=== PATIENT | female | born 1945 | race Caucasian/White ===

== ENCOUNTER → 2016-12-10 | Outpatient (CLI) | payer MEDICARE, BC ==
--- NOTE | 2016-12-10 15:03 | BD ---
EXAMINATION TYPE: MG DEXA axial skeleton. DATE OF EXAM: 12/10/2016 COMPARISON: DEXA bone scan February 05, 2014 CLINICAL HISTORY: Postmenopausal female with known osteopenia Height: 5 FT 1/2 IN Weight: 142 FRAX RISK QUESTIONS: Alcohol (3 or more units per day): NO Family History (Parent hip fracture): NO Glucocorticoids (More than 3mos): NO (Ex: prednisone, prednisolone, methylprednisolone, dexamethasone, and hydrocortisone). History of Fracture in Adulthood: YES Secondary Osteoporosis: 1. Type 1 Diabetes: NO 2. Hyperthyroidism: NO 3. Menopause before 45: NO 4. Malnutrition: NO 5. Chronic liver disease: NO Rheumatoid Arthritis: NO Current Tobacco Use: NO RISK FACTORS HISTORY OF: Hip Fracture (Right/Left): RT HIP When: 10/2016 MRI SAID FX NO SURG Spine Fracture: When: History of Wrist Fracture: BOTH When: RT 1994 LT 1989 Active: YES Postmenopausal woman: AGE 54 Lost more than 2 inches in height since high school: YES MEDICATIONS: Thyroid Medications: YES Which medication: SYNTHROID How Lon YEARS Additional Medications: SYNTHROID,CLONIDINE, SPIRONOLACTONE,PREVASTATIN Additional History: EXAM MEASUREMENTS: Bone mineral densitometry was performed using the [employer] System. Bone mineral density as measured about the Lumbar spine is: ----- L1-L4(G/cm2): 0.960 T Score Values are as follows: ----- L2: -1.8 ----- L3: -1.4 ----- L4: -2.1 ----- L1-L4: -1.8 Bone mineral density has: Decreased -5.6% since study of: 2013 Bone mineral density about the R hip (g/cm2): 0.878 Bone mineral density about the L hip (g/cm2): 0.774 T Score values are as follows: -----R Neck: -1.1 -----L Neck: -1.9 -----R Total: -1.5 -----L Total: -2.0 Bone mineral density has: Decreased -5.3% since study of: 2013 IMPRESSION: Osteopenia (T Score between -2.5 and -1 as noted by T score values remains present in both hips and l ow back. Bone density continues to decrease or diminished from prior exam. There remains slightly inc reased risk of fracture and the patient may be considered for treatment. Re-Screen 2-5 years. NOTE: T-SCORE=SD OF THE YOUNG ADULT MEAN.
== END | disposition home or self-care (01) ==
LOC: RADBDWWP 13:19
PROVIDERS: ATTEND Obstetrics & Gynecology
DX: M85.89 Other specified disorders of bone density and structure, multiple sites (principal)
CPT/HCPCS: 77080

== ENCOUNTER → 2018-12-23 | Outpatient (CLI) | payer MEDICARE, BC ==
--- NOTE | 2018-12-23 07:52 | BD ---
EXAMINATION TYPE: Axial Bone Density DATE OF EXAM: 12/23/2018 COMPARISON: 12/10/2016 CLINICAL HISTORY: Z 77.0 Height: 59.5 IN Weight: 137 LBS FRAX RISK QUESTIONS: History of Fracture in Adulthood: PELVIS FRACTURE (NOT HIP) AGE 70 Secondary Osteoporosis: 2. Hyperthyroidism: YES RISK FACTORS HISTORY OF: History of Wrist Fracture: YES BILAT AGE 52 AND 49 Active: YES Postmenopausal woman: AGE 54 Take estrogen and/or progesterone medications: NOT NOW How long: TOOK PREVIOUSLY FOR 2 YEARS MEDICATIONS: Thyroid Medications: YES Which medication: Synthroid How Long: SINCE 1986 Additional Medications: CALCIUM, VIT D, SYNTHROID, CLONIDINE, SPIRONDOCLONE, PRAVASTATIN, FLAX SEED O IL, OMEGA 3, ASPIRIN EXAM MEASUREMENTS: Bone mineral densitometry was performed using the [employer] System. Bone mineral density as measured about the Lumbar spine is: ----- L1-L4(G/cm2): 1.040 T Score Values are as follows: ----- L2: -1.6 ----- L3: -1.1 ----- L4: -0.6 ----- L1-L4: -1.2 Bone mineral density has: Increased 8.3% since study of: 12/10/2016 Bone mineral density about the R hip (g/cm2): 0.863 Bone mineral density about the L hip (g/cm2): 0.765 T Score values are as follows: -----R Neck: -1.3 -----L Neck: -2.0 -----R Total: -1.3 -----L Total: -1.9 Bone mineral density has: Increased 2.0% since study of: 12/10/2016 IMPRESSION: Osteopenia (T Score between -2.5 and -1). There is slightly increased risk of fracture and the patient may be considered for treatment. Re-Screen 2-5 years. NOTE: T-SCORE=SD OF THE YOUNG ADULT MEAN.
== END ==
LOC: RADBDWWP 07:07
PROVIDERS: ATTEND Obstetrics & Gynecology
DX: M85.80 Other specified disorders of bone density and structure, unspecified site (principal); Z78.0 Asymptomatic menopausal state
CPT/HCPCS: 77080

== ENCOUNTER → 2021-11-11 | Outpatient (CLI) | payer MEDICARE, BC ==
--- NOTE | 2021-11-11 19:15 | BD ---
EXAMINATION TYPE: Axial Bone Density DATE OF EXAM: 11/11/2021 COMPARISON: 12/23/2018 CLINICAL HISTORY: 75 years year old Female. ICD-10 CODE: Z78.0 ASYMPTOMATIC MENOPAUSAL STATE Height: 58.5 IN Weight: 156 LBS FRAX RISK QUESTIONS: History of Fracture in Adulthood: PK WRIST FX AGE 49 APPROX; RT KNEE FX, LT ANKLE FX, STERNUM, RIBS ALL AGE 74 Secondary Osteoporosis: 2. Hyperthyroidism: YES RISK FACTORS HISTORY OF: History of Wrist Fracture: PK WRIST FX When: AGE 49 Active: YES Postmenopausal woman: AGE 54 Take estrogen and/or progesterone medications: NOT NOW How long: TOOK FOR 2 YEARS Lost more than 2 inches in height since high school: YES 3" MEDICATIONS: Thyroid Medications: YES Which medication: Synthroid How Lon+ YEARS Additional Medications: CALCIUM, VIT D, SYNTHROID,OMEGA 3,PRAVASTATIN, CLONIDINE, SPIROLACTONE,FLAXSE ED OIL, ASPIRIN, EXAM MEASUREMENTS: Bone mineral densitometry was performed using the [employer] System. Bone mineral density as measured about the Lumbar spine is: ----- L1-L4(G/cm2): 1.104 T Score Values are as follows: ----- L1: -1.4 ----- L2: -0.2 ----- L3: -0.2 ----- L4: -1.0 ----- L1-L4: -0.6 Bone mineral density has: Increased 6.6% since study of: 12/23/2018 Bone mineral density about the R hip (g/cm2): 0.801 Bone mineral density about the L hip (g/cm2): 0.773 T Score values are as follows: -----R Neck: -1.7 -----L Neck: -1.9 -----R Total: -1.8 -----L Total: -1.9 Bone mineral density has: Decreased -4.7% since study of: 12/23/2018 FRAX%s: The graph provided illustrates a 19.5 chance for a major osteoporotic fx and a 4.6 chance for the hips probability for fx in 10 years time. IMPRESSION: Osteopenia (T Score between -2.5 and -1). There is slightly increased risk of fracture and the patient may be considered for treatment. Re-Screen 2-5 years. NOTE: T-SCORE=SD OF THE YOUNG ADULT MEAN.
== END | disposition home or self-care (01) ==
LOC: RADBDWWP 14:45
PROVIDERS: ATTEND Family Medicine
DX: M81.0 Age-related osteoporosis without current pathological fracture (principal); Z78.0 Asymptomatic menopausal state
CPT/HCPCS: 77080

== ENCOUNTER → 2023-09-09 | Outpatient (CLI) | payer MEDICARE, BC ==
[2023-09-09 16:13] LABS: Chol/HDL Ratio 3.76 Ratio; LDL Cholesterol,Calculated 112.9 mg/dL (0.0-131.0)
== END | disposition home or self-care (01) ==
LOC: LABWHC1 08:47
PROVIDERS: ATTEND Internal Medicine Interventional Cardiology
DX: E78.5 Hyperlipidemia, unspecified (principal)
CPT/HCPCS: 36415; 80061

== ENCOUNTER → 2023-10-20 | Outpatient (CLI) | payer MEDICARE, BC | END | disposition home or self-care (01) | LOC: LABWHC1 09:52 | PROVIDERS: ATTEND Family Medicine | DX: E55.9 Vitamin D deficiency, unspecified (principal) | CPT/HCPCS: 36415; 82306 ==

== ENCOUNTER → 2023-11-16 | Outpatient (CLI) | payer MEDICARE, BC ==
--- NOTE | 2023-11-16 13:43 | BD ---
EXAMINATION TYPE: Axial Bone Density DATE OF EXAM: 11/16/2023 CLINICAL HISTORY: 77 years old Female. ICD-10 CODE: M85.80 DISORDER OF BONE Height: 58.5 in Weight: 153 lbs FRAX RISK QUESTIONS: History of Fracture in Adulthood: lt ankle fx age 73; rt knee fx age 73; lt wrist fx age 50; rt wris t fx age 47 Secondary Osteoporosis: 2. Hyperthyroidism: yes RISK FACTORS HISTORY OF: History of Wrist Fracture: rt wrist fx age 47; lt wrist fx age 50; MEDICATIONS: Thyroid Medications: yes Which medication: Synthroid How Lon+ years EXAM MEASUREMENTS: Bone mineral densitometry was performed using the [employer] System. Bone mineral density as measured about the Lumbar spine is: ----- L1-L4(G/cm2): 1.144 T Score Values are as follows: ----- L1: -1.2 ----- L2: -0.3 ----- L3: 0.2 ----- L4: -0.3 ----- L1-L4: -0.3 Z Score Values are as follows: ----- L1: 0.4 ----- L2: 1.3 ----- L3: 1.9 ----- L4: 1.4 ----- L1-L4: 1.4 Bone mineral density has: Increased 3.6% since study of: 11/11/2021 Bone mineral density about the R hip (g/cm2): 0.744 Bone mineral density about the L hip (g/cm2): 0.782 T Score values are as follows: -----R Neck: -1.8 -----L Neck: -1.9 -----R Total: -2.1 -----L Total: -1.8 Z Score values are as follows: -----R Neck: 0.2 -----L Neck: 0.1 -----R Total: -0.3 -----L Total: 0.0 Bone mineral density has: Decreased -1.0% since study of: 11/11/2021 FRAX%s: The graph provided illustrates a 20.6% chance for a major osteoporotic fx and a 5.1% chance f or the hips probability for fx in 10 years time. IMPRESSION: Osteopenia (T Score between -2.5 and -1). There is slightly increased risk of fracture and the patient may be considered for treatment. Re-Screen 2-5 years. NOTE: T-SCORE=SD OF THE YOUNG ADULT MEAN.
== END | disposition home or self-care (01) ==
LOC: RADBDWWP 10:28
PROVIDERS: ATTEND Family Medicine
DX: M85.88 Other specified disorders of bone density and structure, other site (principal)
CPT/HCPCS: 77080